=== PATIENT | male | born 1985 | race American Indian/Alaskan Native ===

== ENCOUNTER 2018-03-30 14:16 | Emergency (ER) | payer BC ==
[2018-03-30 14:22] VITALS: BP 127/84
[2018-03-30] MEDS ORDERED: CLEOCIN IM ONE (15:04)
[2018-03-30] MEDS ORDERED: MOTRIN PO ONE (15:04)
[2018-03-30] MEDS ORDERED: TYLENOL #3 PO ONE (15:04)
--- NOTE | 2018-03-30 15:04 | Emergency Department Report ---
HPI - General Chief Complaint: Dental/Oral Time Seen by Provider: 03/30/18 14:55 - HPI HPI: Patient reports that he has a toothache and swollen gums to his lower mouth on both sides. He denies any swelling to his face. Denies any fever or chills. He says this has been ongoing at this got worse yesterday. Pain is 9 out of 10 and aching. He said he has [facility] appointment [facility] and he just came in because he is having increasing pain. Denies any sore throat, drooling or sore throat. Denies any nasal congestion or runny nose. [id number] pain medication taken without any help. Pain is worse with even ED Past Medical Hx - Past Medical History Previous Medical History?: Yes Additional medical history: boils - Surgical History Past Surgical History?: No - Family History Family history: hypertension - Social History Smoking Status: Current Every Day Smoker Substance Use Type: None - Medications Home Medications: Home Medications Medication Instructions Recorded Confirmed Last Taken Type Ibuprofen [Motrin] 800 mg PO TID PRN #15 tablet 01/06/14 Unknown Rx Sulfamethoxazole/Trimethoprim 1 each PO BID #14 tablet 01/06/14 Unknown Rx [Bactrim Ds] Cephalexin [Keflex] 500 mg PO Q12HR #14 cap 11/21/16 Unknown Rx Sulfamethoxazole/Trimethoprim 1 each PO BID #14 tablet 11/21/16 Unknown Rx [Bactrim DS TAB] Acetaminophen/Codeine [Tylenol 1 tab PO Q6H PRN #12 tab 03/30/18 Unknown Rx /Codeine # 3 tab] Ibuprofen [Motrin 600 MG tab] 600 mg PO Q8H PRN #15 tablet 03/30/18 Unknown Rx Penicillin V Potassium 500 mg PO Q8H 10 Days #30 tablet 03/30/18 Unknown Rx ED Review of Systems ROS: Stated complaint: GUMS SWOLLEN Other details as noted in HPI Comment: All other systems reviewed and negative Constitutional: no symptoms reported Eyes: denies: eye pain, eye discharge ENT: dental pain. denies: ear pain, throat pain, congestion Respiratory: no symptoms reported Cardiovascular: denies: chest pain, palpitations, dyspnea on exertion, edema, syncope, paroxysmal nocturnal dyspnea Gastrointestinal: denies: nausea, vomiting Musculoskeletal: denies: back pain, joint swelling, arthralgia, myalgia Skin: denies: rash Neurological: denies: headache Physical Exam - Physical Exam Vital Signs: Vital Signs 03/30/18 14:18 Temperature 98.7 F Pulse Rate 80 Respiratory 18 Rate Blood Pressure 127/84 O2 Sat by Pulse 98 Oximetry General: This is a 33-year-old male well-nourished well-developed in no acute distress Physical Exam: Head: Normocephalic atraumatic Ears:BIateral TM pearly orozco ,Nathaniel EAC with normal exam. No mastoid bone tenderness. Mouth: Moist, no pharyngeal erythema or exudate . Patient with widespread gingivitis, dental caries, tenderness A to gums. Normal tongue. No abscess noted. No facial swelling. UVULA midline and oral airways patent. No peritonsillar abscess Neck: Nontender to palpate, supple, normal range of motion. No adenopathy. No c- spine tenderness. Nose: Bilateral nasal mucosa normal exam. maxillary and frontal sinuses non- tender to palpate. Eyes: Bilateral Sclerae and conjunctiva without injection. Bilateral pupils equal and reactive to light. Bilateral lids are normal. Normal accommodation.BEOMI Lungs: Clear to auscultate bilaterally, no rhonchi wheezes or rales. Normal work of breathing and no chest wall tenderness CV: S1, S2. Regular rate and rhythm negative murmur. Capillary refill is less than 3 seconds Extremity: No clubbing, cyanosis or edema. +2 pulses in all extremities and no neurovascular compromise Skin: Clean dry and intact, no rashes or lesions Psych: Normal mood and behavior ED Course Vital Signs 03/30/18 14:18 Temperature 98.7 F Pulse Rate 80 Respiratory 18 Rate Blood Pressure 127/84 O2 Sat by Pulse 98 Oximetry - Reevaluation(s) Reevaluation #1: 03/30/18 15:30 Patient given Tylenol No. 3 2 tablets by mouth in the emergency room, Motrin 600 mg by mouth for toothache. He is given clindamycin 6 mg IM for gingivitis. ED Medical Decision Making - Medical Decision Making ED course: Care reporting toothache that has been ongoing but getting worse. He has a dental appointment in 2 days but reports that his pain is getting worse and he needs something for pain. Physical findings for widespread gingivitis, dental caries without any abscess. His gums are tender to palpate. Patient was given Tylenol No. 3 2 tablets by mouth, Motrin 600 mg by mouth for pain and clindamycin 600 mg IM for gingivitis. Patient discharged home to keep her follow-up appointment with his [facility] in 2 days. Discharged home with prescription for penicillin V, Motrin and Tylenol 3. Critical care attestation.: If time is entered above; I have spent that time in minutes in the direct care of this critically ill patient, excluding procedure time. ED Disposition Clinical Impression: Gingivitis, Tooth pain, Dental caries Disposition: DC- TO HOME OR SELFCARE Is pt being admited?: No Does the pt Need Aspirin: No Condition: Stable Instructions: Dental Caries (ED), Toothache (ED), Gingivitis (ED) Additional Instructions: Please gargle with Listerine 3 times a day and floss 3 times a day to prevent acceleration of gum disease. Take Medication as prescribed for gum disease and toothache DO Not drive or operate heavy machinery while taking Tylenol No. 3 as this medication causes drowsiness. Keep Appointment at [facility] for evaluation of gum disease and dental decay and if he cannot get in and would [facility] than you need follow-up at [facility]. Prescriptions: Acetaminophen/Codeine [Tylenol /Codeine # 3 tab] 1 tab PO Q6H PRN #12 tab PRN Reason: moderate to severe pain Ibuprofen [Motrin 600 MG tab] 600 mg PO Q8H PRN #15 tablet PRN Reason: Pain Penicillin V Potassium 500 mg PO Q8H 10 Days #30 tablet Referrals: PRIMARY CARE, [Primary Care Provider] - 3-5 Days [facility] [Outside] - 2-3 Days follow-up with your, dentist [Other] - 3-5 Days Forms: Work/School Release Form(ED)
== END 2018-03-30 16:16 | disposition home or self-care (01) ==
LOC: ED 14:16
DX: K02.9 Dental caries, unspecified (principal); K05.10 Chronic gingivitis, plaque induced; F17.200 Nicotine dependence, unspecified, uncomplicated
CPT/HCPCS: 96372

== ENCOUNTER 2019-12-15 13:12 | Emergency (ER) | payer BC, OTHER ==
--- NOTE | 2019-12-15 16:06 | Event Note ---
ED Screening Note Date of service: 12/15/19 Time: 16:04 ED Screening Note: 34 y o male presents with left sided abd pain worsening today denies etoh use, n/v/d This initial assessment/diagnostic orders/clinical plan/treatment(s) is/are subject to change based on patients health status, clinical progression and re- assessment by fellow clinical providers in the ED. Further treatment and workup at subsequent clinical providers discretion. Patient/guardian urged not to elope from the ED as their condition may be serious if not clinically assessed and managed. Initial orders include: labs, acc eval
[2019-12-15 17:27] LABS: Basophils % (Auto) 0.6 % (0.0-1.8); Eosinophils # (Auto) 0.1 K/mm3 (0.0-0.4); Eosinophils % (Auto) 1.5 % (0.0-4.3); Hematocrit 47.3 % (35.5-45.6); Lymphocytes # (Auto) 1.8 K/mm3 (1.2-5.4); Lymphocytes % (Auto) 39.7 % (13.4-35.0); Mean Corpuscular HGB Conc 34 % (32-34); Mean Corpuscular Volume 94 fl (84-94); Monocytes # (Auto) 0.5 K/mm3 (0.0-0.8); Monocytes % (Auto) 11.7 % (0.0-7.3); Platelet Count 210 K/mm3 (140-440); Red Blood Count 5.02 M/mm3 (3.65-5.03)
[2019-12-15 17:51] LABS: Alanine Aminotransferase 27 units/L (7-56); Albumin 4.4 g/dL (3.9-5); BUN/Creatinine Ratio 18; Blood Urea Nitrogen 16 mg/dL (9-20); Calcium 9.7 mg/dL (8.4-10.2); Hemolysis Index 15
--- NOTE | 2019-12-15 19:59 | Emergency Department Report ---
ED Abdominal Pain HPI - General Chief Complaint: Abdominal Pain Stated Complaint: POSS FOOD POISING Time Seen by Provider: 12/15/19 18:48 Source: patient Mode of arrival: Ambulatory Limitations: No Limitations - History of Present Illness Initial Comments: 34-year-old white female A at [employer] and developed pain associated with nausea MD Complaint: abdominal pain -: Gradual Location: diffuse Radiation: none Migration to: no migration Severity: mild Quality: aching, dull Consistency: constant Improves With: nothing Worsens With: nothing Associated Symptoms: denies: vomiting, diarrhea, constipation, dysuria, hematemesis, hematuria, anorexia, syncope - Related Data Previous Rx's Medication Instructions Recorded Last Taken Type Ibuprofen [Motrin] 800 mg PO TID PRN #15 tablet 01/06/14 Unknown Rx Sulfamethoxazole/Trimethoprim 1 each PO BID #14 tablet 01/06/14 Unknown Rx [Bactrim Ds] Sulfamethoxazole/Trimethoprim 1 each PO BID #14 tablet 11/21/16 Unknown Rx [Bactrim DS TAB] cephALEXin [Keflex] 500 mg PO Q12HR #14 cap 11/21/16 Unknown Rx Acetaminophen/Codeine [Tylenol 1 tab PO Q6H PRN #12 tab 03/30/18 Unknown Rx /Codeine # 3 tab] Ibuprofen [Motrin 600 MG tab] 600 mg PO Q8H PRN #15 tablet 03/30/18 Unknown Rx Penicillin V Potassium 500 mg PO Q8H 10 Days #30 tablet 03/30/18 Unknown Rx Hyoscyamine Subl [Levsin Sl 0.125 0.125 mg SL Q4HR PRN #14 tablet 12/15/19 Unknown Rx TAB] Allergies Allergy/AdvReac Type Severity Reaction Status Date / Time No Known Allergies Allergy Unverified 01/06/14 18:56 ED Review of Systems ROS: Stated complaint: POSS FOOD POISING Other details as noted in HPI Comment: All other systems reviewed and negative ED Past Medical Hx - Past Medical History Previous Medical History?: No Additional medical history: boils - Surgical History Past Surgical History?: No - Social History Smoking Status: Current Every Day Smoker Substance Use Type: None - Medications Home Medications: Home Medications Medication Instructions Recorded Confirmed Last Taken Type Ibuprofen [Motrin] 800 mg PO TID PRN #15 tablet 01/06/14 Unknown Rx Sulfamethoxazole/Trimethoprim 1 each PO BID #14 tablet 01/06/14 Unknown Rx [Bactrim Ds] Sulfamethoxazole/Trimethoprim 1 each PO BID #14 tablet 11/21/16 Unknown Rx [Bactrim DS TAB] cephALEXin [Keflex] 500 mg PO Q12HR #14 cap 11/21/16 Unknown Rx Acetaminophen/Codeine [Tylenol 1 tab PO Q6H PRN #12 tab 03/30/18 Unknown Rx /Codeine # 3 tab] Ibuprofen [Motrin 600 MG tab] 600 mg PO Q8H PRN #15 tablet 03/30/18 Unknown Rx Penicillin V Potassium 500 mg PO Q8H 10 Days #30 tablet 03/30/18 Unknown Rx Hyoscyamine Subl [Levsin Sl 0.125 0.125 mg SL Q4HR PRN #14 tablet 12/15/19 Unknown Rx TAB] ED Physical Exam - General Limitations: No Limitations General appearance: alert, in no apparent distress - Head Head exam: Present: atraumatic, normocephalic - Eye Eye exam: Present: normal appearance - ENT ENT exam: Present: mucous membranes moist - Neck Neck exam: Present: normal inspection - Respiratory Respiratory exam: Present: normal lung sounds bilaterally. Absent: respiratory distress - Cardiovascular Cardiovascular Exam: Present: regular rate, normal rhythm. Absent: systolic murmur, diastolic murmur, rubs, gallop - GI/Abdominal GI/Abdominal exam: Present: soft, tenderness, normal bowel sounds. Absent: guarding, rebound, hyperactive bowel sounds, hypoactive bowel sounds - Rectal Rectal exam: Present: deferred - Extremities Exam Extremities exam: Present: normal inspection - Back Exam Back exam: Present: normal inspection, full ROM. Absent: CVA tenderness (R), CVA tenderness (L) - Neurological Exam Neurological exam: Present: alert, oriented X3, CN II-XII intact - Psychiatric Psychiatric exam: Present: normal affect, normal mood - Skin Skin exam: Present: warm, dry, intact, normal color. Absent: rash ED Medical Decision Making - Lab Data Result diagrams: 12/15/19 16:51 12/15/19 16:51 - Medical Decision Making This patient presents with posterior chest chicken associated nausea, mild abdominal pain and diarrhea. Differential diagnoses includes possible acute gastroenteritis. Abdominal exam without peritoneal signs. Currently symptoms have improved he is tolerating by mouth euvolemic without evidence of dehydratio n. No evidence of surgical abdomen or other acute medical emergency including bowel obstruction, viscus perforation, vascular catastrophe, atypical appendicitis, acute cholecystitis at this time. Presentation not consistent with other acute, emergent causes of vomiting / diarrhea at this time. No indication for abdominal imaging. Plan: supportive care, oral rehydration , serial abdominal exam, reassess Critical care attestation.: If time is entered above; I have spent that time in minutes in the direct care of this critically ill patient, excluding procedure time. ED Disposition Clinical Impression: Gastroenteritis Disposition: DC- TO HOME OR SELFCARE Is pt being admited?: No Does the pt Need Aspirin: No Condition: Stable Instructions: Gastroenteritis (ED) Prescriptions: Hyoscyamine Subl [Levsin Sl 0.125 TAB] 0.125 mg SL Q4HR PRN #14 tablet PRN Reason: Spasms Referrals: JOSE RAUL CHARLES MD [Staff Physician] - 3-5 Days Forms: Work/School Release Form(ED)
[2019-12-15 20:49] VITALS: BP 114/80
== END 2019-12-15 20:38 | disposition home or self-care (01) ==
LOC: ED 13:12
DX: K52.9 Noninfective gastroenteritis and colitis, unspecified (principal); F17.200 Nicotine dependence, unspecified, uncomplicated; Z79.899 Other long term (current) drug therapy; Z79.1 Long term (current) use of non-steroidal anti-inflammatories (NSAID)
CPT/HCPCS: 36415; 80053; 85025